=== PATIENT | male | born 1965 | race Caucasian/White ===

== ENCOUNTER 2017-10-18 12:29 | Emergency (ER) | payer MEDICAID ==
[~2017-10-18] VITALS: Ht 172.7 cm; Wt 93.0 kg
[~2017-10-18 12:29] MED LIST: AUGMENTIN 875-1 EACH PO; BACLOFEN10 MG PO; CLONIDINE HCL0.1 MG PO; IBUPROFEN600 MG PO; METFORMIN HCL500 MG PO; OLANZAPINE10 MG PO; PROVENTIL HFA6.7 GM INH; SERTRALINE HCL100 MG PO; TRAZODONE HCL100 MG PO; TUMS200 MG PO; TYLENOL325 MG PO
== END 2017-10-18 14:23 | disposition home or self-care (01) ==
LOC: ED 12:29
DX: Z00.8 Encounter for other general examination (principal); F15.10 Other stimulant abuse, uncomplicated; F32.9 Major depressive disorder, single episode, unspecified; F17.200 Nicotine dependence, unspecified, uncomplicated; Z79.899 Other long term (current) drug therapy
CPT/HCPCS: 36415; 80053; 80176; 81001; 84443; 85025; 99283; G0480